=== PATIENT | female | born 1980 | race Caucasian/White ===

== ENCOUNTER 2018-05-08 17:09 | Emergency (ER) | payer OTHER ==
[~2018-05-08] VITALS: Ht 160 cm; Wt 76.7 kg
[2018-05-08] MEDS ORDERED: COZAAR25 MG (17:54)
== END 2018-05-08 22:28 | disposition home or self-care (01) ==
LOC: ER 17:09
DX: N91.1 Secondary amenorrhea (principal); R10.2 Pelvic and perineal pain; Z33.1 Pregnant state, incidental